=== PATIENT | female | born 1965 | race Caucasian/White ===

== ENCOUNTER 2022-08-06 16:37 | Emergency (ER) | payer OTHER ==
[~2022-08-06] VITALS: Ht 170.2 cm; Wt 65.8 kg
[2022-08-06] MEDS ORDERED: CEPHALEXIN500 MG PO (16:57)
[2022-08-06] MEDS ORDERED: GRISEOFULVIN500 MG PO (16:57)
== END 2022-08-06 17:02 | disposition home or self-care (01) ==
LOC: ER 16:44
DX: B35.0 Tinea barbae and tinea capitis (principal); L65.9 Nonscarring hair loss, unspecified
CPT/HCPCS: 99282